=== PATIENT | female | born 1990 | race Hispanic/Latino ===

== ENCOUNTER 2024-11-29 10:03 | Day surgery (SDC) | payer OTHER ==
[2024-11-27 09:19] VITALS: BMI 26.5
[2024-11-27 10:13] LABS: Hematocrit 36.3 % (34.9-44.5); Hemoglobin 11.6 g/dL (12.0-15.5); Mean Corpuscular Hemoglobin 23.1 pg (27.0-33.0); Mean Corpuscular Volume 72.2 fL (81.6-98.3); Platelet Count 472 10x3/uL (150-450); Red Blood Cell (RBC) Count 5.03 10x6/uL (3.90-5.03); White Blood Cell (WBC) Count 9.17 10x3/uL (3.5-10.5)
[2024-11-27 10:22] LABS: BHCG - Serum Negative (NEGATIVE); Pregs Control Background? CLEAR/WHITE (CLR/WHITE); Pregs Control Bar Appear? YES (CONTROL BAR)
[2024-11-27 10:27] LABS: Anion Gap 13 mmol/L (10-20); BUN (Urea Nitrogen) 6 mg/dL (7.0-18.7); Calc. Creatinine Clearance 0 mL/min (70-130); Calcium 9.3 mg/dL (7.8-10.44); Carbon Dioxide 24 mmol/L (22-29); Chloride 106 mmol/L (98-107); Glucose 84 mg/dL (70-105); Potassium 3.9 mmol/L (3.5-5.1); Sodium 139 mmol/L (136-145)
[2024-11-29] MEDS ORDERED: metroNIDAZOLE 500 MG (100 mL) BAG ONE ×2 (11:30→13:23)
[2024-11-29] MEDS ORDERED: Gabapentin 300 MG CAP ONE (11:30)
[2024-11-29] MEDS ORDERED: Famotidine/PF 20 mg/2ml Vial ONE (11:30)
[2024-11-29] MEDS ORDERED: Rocuronium Bromide 10 MG/ML (10ML VIAL) ONE (12:25)
[2024-11-29] MEDS ORDERED: Ketorolac Tromethamine 30 MG (1 mL) VIAL ONE (12:25)
[2024-11-29] MEDS ORDERED: Ondansetron PF 4 MG/2 ML Vial ONE (12:25)
[2024-11-29] MEDS ORDERED: PROPOFOL 40 ML ONE (12:25)
[2024-11-29] MEDS ORDERED: Bupivacaine HCl 0.5%/Epinephrine 1:200,000/PF 30 ml Vial ONE (13:08)
[2024-11-29] MEDS ORDERED: CEFAZOLIN 2 GM VIAL ONE (13:23)
[2024-11-29] MEDS ORDERED: SUGAMMADEX SODIUM 200 MG/2 ML VIAL ONE (14:08)
[2024-11-29] MEDS ORDERED: HYDROcodone/Acetaminophen 5/325 mg Tablet ONE (16:01)
== END 2024-11-29 18:05 | disposition home or self-care (01) ==
LOC: CSHSDC 10:03
PROVIDERS: ATTEND Obstetrics & Gynecology
PROC: 0UT98ZZ Resection of Uterus, Via Natural or Artificial Opening Endoscopic (ICD-10-PCS; principal; 2024-11-29)
PROC: 0UB78ZZ Excision of Bilateral Fallopian Tubes, Via Natural or Artificial Opening Endoscopic (ICD-10-PCS; principal; 2024-11-29)
DX: D25.1 Intramural leiomyoma of uterus (principal); D25.2 Subserosal leiomyoma of uterus; N80.03 Adenomyosis of the uterus; N73.6 Female pelvic peritoneal adhesions (postinfective); I10 Essential (primary) hypertension; E11.9 Type 2 diabetes mellitus without complications; D50.9 Iron deficiency anemia, unspecified; Z79.84 Long term (current) use of oral hypoglycemic drugs; Z79.899 Other long term (current) drug therapy
CPT/HCPCS: 36416; 80048; 84703; 85027; 86850; 86900; 86901; 88307; J1308; J1885; J2250; J2405; J2704; J3010; S2900